=== PATIENT | female | born 1990 | race Caucasian/White ===

== ENCOUNTER 2021-12-10 06:52 | Inpatient (IN) | payer BC ==
[~2021-12-10 06:52] MED LIST: Lidocaine 1% 10 ML MDV ONE
[2021-12-10] MEDS ORDERED: Nalbuphine HCl 10 MG/ 1ML Amp IVPUSH PRN (07:38)
[2021-12-10] MEDS ORDERED: Ondansetron 4 MG/2 ML SDV IVPUSH PRN (07:38)
[2021-12-10] MEDS ORDERED: Sodium Chloride 0.9% 10 ML Syringe FLUSH PRN (07:38)
[2021-12-10] MEDS ORDERED: Oxytocin/Lactated Ringers 10 UNIT/1,000 ML BAG IV SCH ×2 (07:45)
[2021-12-10] MEDS ORDERED: Bupivacaine/fentaNYL/NS 100 ML Bag EPIDUR PRN (08:37)
[2021-12-10] MEDS ORDERED: diphenhydrAMINE 50 MG/ML SDV IVPUSH PRN (08:37)
[2021-12-10] MEDS ORDERED: ePHEDrine 50 MG/ML SDV IVPUSH PRN (08:37)
[2021-12-10] MEDS ORDERED: fentaNYL 100 MCG/2 ML SDV EPIDUR PRN (08:37)
[2021-12-10] MEDS ORDERED: Sodium Chloride 0.9% 10 ML Syringe FLUSH SCH (09:00)
[2021-12-10] MEDS: Lactated Ringers 1,000 ML IV SCH ×3 (10:13→13:13)
[2021-12-10] MEDS ORDERED: Benzocaine/Menthol 20%-0.5% Spray 78 GM Cannister TOP PRN (17:34)
[2021-12-10] MEDS ORDERED: Docusate Sodium 100 MG Cap PO PRN (17:34)
[2021-12-10] MEDS ORDERED: Acetaminophen 325 MG Tab PO PRN (17:34)
[2021-12-10] MEDS ORDERED: Ibuprofen 600 MG Tab PO PRN (17:34)
[2021-12-10] MEDS ORDERED: Witch Hazel Medicated Pads 40/Jar TOP PRN (17:34)
== END 2021-12-11 15:30 | disposition home or self-care (01) | DRG 560 ==
LOC: JD.OB 06:52 → OBSVTOIN 14:10 → JD.OB 14:25
PROVIDERS: ADMIT Obstetrics & Gynecology; ATTEND Obstetrics & Gynecology
PROC: 10E0XZZ Delivery of Products of Conception, External Approach (ICD-10-PCS; principal; 2021-12-10)
PROC: 10907ZC Drainage of Amniotic Fluid, Therapeutic from Products of Conception, Via Natural or Artificial Opening (ICD-10-PCS; 2021-12-10)
PROC: 3E033VJ Introduction of Other Hormone into Peripheral Vein, Percutaneous Approach (ICD-10-PCS; 2021-12-10)
PROC: 3E0R3BZ Introduction of Anesthetic Agent into Spinal Canal, Percutaneous Approach (ICD-10-PCS; 2021-12-10)
PROC: 00HU33Z Insertion of Infusion Device into Spinal Canal, Percutaneous Approach (ICD-10-PCS; 2021-12-10)
DX: O69.81X0 Labor and delivery complicated by cord around neck, without compression, not applicable or unspecified (principal); Z37.0 Single live birth; Z3A.40 40 weeks gestation of pregnancy
CPT/HCPCS: 01967; 36415; 51702; 59025; 59409; 85027; 86592; 86850; 86900; 86901; A9270-GY; J2590; J3010; J7120